=== PATIENT | male | born 1975 | race Two or more races ===

== ENCOUNTER 2024-12-08 15:37 | Emergency (ER) | payer OTHER ==
[~2024-12-08] VITALS: Ht 170.2 cm; Wt 68.0 kg
[2024-12-08] MEDS ORDERED: MAG HYDROX/AL HYDROX/SIMETH 30 ML UDC ONE (18:27)
[2024-12-08] MEDS ORDERED: DICYCLOMINE HCL 10 MG CAPSULE PO ONE (18:28)
[2024-12-08] MEDS ORDERED: ONDANSETRON 4 MG TAB.RAPDIS ONE (18:28)
[2024-12-08] MEDS ORDERED: ACETAMINOPHEN 325 MG TABLET ONE (18:28)
[2024-12-08] MEDS ORDERED: FAMOTIDINE (20 MG) 20 MG TABLET ONE (18:28)
[2024-12-08] MEDS ORDERED: LIDOCAINE VISCOUS 2% UD 15 ML UDC ONE (18:28)
[2024-12-08] MEDS ORDERED: PANTOPRAZOLE 40 MG TABLET.DR PO ONE (18:29)
[2024-12-08] MEDS ORDERED: PANTOPRAZOLE 40 MG/PACK PACK ONE (18:31)
[2024-12-08 18:32] LABS: PLATELET COUNT (AUTO) 195 K/uL (150-450); RED BLOOD CELL COUNT(AUTO) 5.48 MIL/uL (4.5-6.0); RED CELL DISTRIBUTION WIDTH 13.4 % (11.5-15.0); WHITE BLOOD COUNT (AUTO) 6.7 K/uL (4.3-11.0)
[2024-12-08] MEDS: LIDOCAINE VISCOUS 2% UD 15 ML UDC MM ONE (18:39)
[2024-12-08] MEDS: DICYCLOMINE HCL 10 MG CAPSULE PO ONE (18:39)
[2024-12-08] MEDS: FAMOTIDINE (20 MG) 20 MG TABLET PO ONE (18:39)
[2024-12-08] MEDS: ONDANSETRON HCL 4 MG/5 ML SOLUTION PO ONE (18:39)
[2024-12-08] MEDS: MAG HYDROX/AL HYDROX/SIMETH 30 ML UDC PO ONE (18:39)
[2024-12-08] MEDS: ACETAMINOPHEN 650 MG/20.3 ML UDC PO ONE (18:40)
[2024-12-08] MEDS: PANTOPRAZOLE 40 MG/PACK PACK PO ONE (18:40)
[2024-12-08 18:42] LABS: CALCIUM, SERUM 9.3 mg/dL (8.5-10.1); CREATININE 0.9 mg/dL (0.6-1.3); SODIUM SERUM 141.0 mmol/L (136-145); UREA NITROGEN, BLOOD 13.0 mg/dL (7-18)
[2024-12-08 18:47] LABS: ASPARTATE AMINOTRANSFERASE 25.0 U/L (15-37); TOTAL PROTEIN, SERUM 7.2 g/dL (6.4-8.2)
[2024-12-08] MEDS ORDERED: DICY10CA37 PO (19:00)
[2024-12-08] MEDS ORDERED: ONDA4TAB5 PO (19:00)
[2024-12-08] MEDS ORDERED: PANT40TA49 PO (19:00)
[2024-12-08] MEDS ORDERED: FAMO20TA80 PO (19:00)
[2024-12-08] MEDS ORDERED: ACET-868 PO (19:00)
[2024-12-08 19:12] VITALS: BP 133/67; TEMP 98.5; O2SAT 100
== END 2024-12-08 19:12 | disposition home or self-care (01) ==
LOC: ER 15:48
DX: K29.70 Gastritis, unspecified, without bleeding (principal); Z79.899 Other long term (current) drug therapy
CPT/HCPCS: 99284; 85025; 80048; 83690; 80076; 36415; Q0162